=== PATIENT | female | born 1960 | race Caucasian/White ===

== ENCOUNTER 2019-09-24 11:06 | Emergency (ER) | payer MEDICAID ==
[~2019-09-24] VITALS: Ht 165.1 cm; Wt 86.0 kg
[2019-09-24] MEDS ORDERED: KETOROLAC 60MG/2ML VIAL IM ONE (11:30)
[2019-09-24 13:06] VITALS: BP 184/101
== END 2019-09-24 13:07 | disposition home or self-care (01) ==
LOC: ER 11:22
DX: M25.512 Pain in left shoulder (principal); M25.511 Pain in right shoulder; M54.2 Cervicalgia; Z91.040 Latex allergy status
CPT/HCPCS: 72125; 96372; 99284; J1885

== ENCOUNTER 2022-06-02 16:56 | Emergency (ER) | payer MEDICAID, OTHER ==
[~2022-06-02] VITALS: Ht 154.9 cm; Wt 73.0 kg
[2022-06-02] MEDS ORDERED: KETOROLAC 15MG/ML VIAL IM ONE (17:30)
[2022-06-02 17:53] VITALS: BP 149/88
[2022-06-02] MEDS ORDERED: NAPR500T7 MT (19:10)
== END 2022-06-02 19:41 | disposition home or self-care (01) ==
LOC: ER 16:56
DX: M79.10 Myalgia, unspecified site (principal); M25.561 Pain in right knee
CPT/HCPCS: 73562; 96372; 99283; J1885